=== PATIENT | female | born 1985 | race Caucasian/White ===

== ENCOUNTER 2017-05-15 12:24 | Emergency (ER) | payer OTHER ==
[~2017-05-15] VITALS: Ht 157.5 cm; Wt 102.9 kg
[~2017-05-15 12:24] MED LIST: CALC250T PO; IBUP80TA PO; LABE10TAB PO; No Historical Meds; OXYC10TA12 OR; PERCOCET PO; VITA500047 PO
[2017-05-15 14:28] LABS: ANION GAP 7 MEQ/L (8-16); BLOOD UREA NITROGEN 9 MG/DL (7-18); CALCIUM LEVEL 9.1 MG/DL (8.5-10.1); CARBON DIOXIDE LEVEL 27 MEQ/L (21-32); CHLORIDE LEVEL 106 MEQ/L (98-107); CREATININE FOR GFR 0.66 MG/DL (0.55-1.02); GLOMERULAR FILTRATION RATE > 60.0 (>60); GLUCOSE, FASTING 102 MG/DL (70-105); POTASSIUM SERUM 3.7 MEQ/L (3.5-5.1); SODIUM LEVEL 140 MEQ/L (136-145)
[2017-05-15 14:56] VITALS: BP 164/92
[2017-05-15] MEDS ORDERED: TOBR3OPD OS (15:26)
[2017-05-15] MEDS ORDERED: LISI10TA4 PO (15:26)
== END 2017-05-15 15:39 | disposition home or self-care (01) ==
LOC: M ED 12:24
DX: H10.9 Unspecified conjunctivitis (principal); I10 Essential (primary) hypertension; J45.909 Unspecified asthma, uncomplicated; Z87.442 Personal history of urinary calculi; Z87.440 Personal history of urinary (tract) infections; K92.9 Disease of digestive system, unspecified; N93.9 Abnormal uterine and vaginal bleeding, unspecified; F32.9 Major depressive disorder, single episode, unspecified; Z79.899 Other long term (current) drug therapy

== ENCOUNTER → 2017-07-29 | Outpatient (REF) | payer OTHER ==
[~2017-07-29] MED LIST changes: +LISI10TA4 PO; +TOBR3OPD OS
[2017-07-29 11:28] LABS: BASO % 0.6 % (0.0-1.0); EOS # 0.2 10^3/uL (0.0-0.50); IMMATURE GRANULOCYTE % 0.6 % (0-0); LYMPH # 2.7 10^3/uL (1.5-4.5); LYMPH % 40.9 % (24.0-44.0); MEAN CORPUSCULAR HEMOGLOBIN 29.3 pg (27.0-33.0); MEAN CORPUSCULAR HGB CONC 33.4 g/dl (32.0-36.5); MEAN CORPUSCULAR VOLUME 87.6 fl (80.0-96.0); MONO # 0.3 10^3/uL (0.0-0.8); MONO % 4.5 % (0.0-5.0); NEUTROPHILS # 3.4 10^3/uL (1.8-7.7); NEUTROPHILS % 50.4 % (36.0-66.0); PLATELET COUNT, AUTOMATED 312 10^3/uL (150-450); RED CELL DISTRIBUTION WIDTH 12.8 % (11.5-14.5); WHITE BLOOD COUNT 6.7 10^3/uL (4.0-10.0)
[2017-07-29 11:51] LABS: ALBUMIN 3.8 GM/DL (3.2-5.2); ALBUMIN/GLOBULIN RATIO 1.06 (1.00-1.93); ALKALINE PHOSPHATASE 85 U/L (45-117); ALT/SGPT 30 U/L (12-78); ANION GAP 7 MEQ/L (8-16); AST/SGOT 14 U/L (7-37); BILIRUBIN,TOTAL 0.2 MG/DL (0.2-1.0); BLOOD UREA NITROGEN 11 MG/DL (7-18); CALCIUM LEVEL 8.3 MG/DL (8.5-10.1); CARBON DIOXIDE LEVEL 27 MEQ/L (21-32); CHLORIDE LEVEL 107 MEQ/L (98-107); CHOLESTEROL LEVEL 192 MG/DL (<200); CREATININE FOR GFR 0.68 MG/DL (0.55-1.02); FREE T4 1.07 NG/DL (0.76-1.46); GLOMERULAR FILTRATION RATE > 60.0 (>60); GLUCOSE, FASTING 132 MG/DL (70-105); POTASSIUM SERUM 4.3 MEQ/L (3.5-5.1); SODIUM LEVEL 141 MEQ/L (136-145); TOTAL PROTEIN 7.4 GM/DL (6.4-8.2); TRIGLYCERIDES LEVEL 439 MG/DL (<150)
== END ==
LOC: M SFHCPLAZ 09:07
PROVIDERS: ATTEND Physician Assistant Medical
DX: N13.5 Crossing vessel and stricture of ureter without hydronephrosis (principal); R53.82 Chronic fatigue, unspecified; E66.9 Obesity, unspecified

== ENCOUNTER → 2017-08-12 | Outpatient (REF) | payer OTHER ==
[2017-08-12 13:06] LABS: FREE T4 1.14 NG/DL (0.76-1.46)
== END ==
LOC: M SFHCPLAZ 10:03
DX: E03.9 Hypothyroidism, unspecified (principal)
CPT/HCPCS: 84443

== ENCOUNTER → 2017-08-26 | Outpatient (REF) | payer OTHER ==
[2017-08-26 13:27] LABS: ANION GAP 7 MEQ/L (8-16); BLOOD UREA NITROGEN 11 MG/DL (7-18); CALCIUM LEVEL 9.4 MG/DL (8.5-10.1); CARBON DIOXIDE LEVEL 28 MEQ/L (21-32); CHLORIDE LEVEL 104 MEQ/L (98-107); CREATININE FOR GFR 0.74 MG/DL (0.55-1.02); FREE T4 1.18 NG/DL (0.76-1.46); GLOMERULAR FILTRATION RATE > 60.0 (>60); GLUCOSE, FASTING 141 MG/DL (70-100); POTASSIUM SERUM 3.8 MEQ/L (3.5-5.1); SODIUM LEVEL 139 MEQ/L (136-145)
== END ==
LOC: M SFHCPLAZ 09:59
DX: E03.9 Hypothyroidism, unspecified (principal); I10 Essential (primary) hypertension

== ENCOUNTER → 2017-10-15 | Outpatient (REF) | payer OTHER ==
[2017-10-15 13:43] LABS: ANION GAP 6 MEQ/L (8-16); BLOOD UREA NITROGEN 12 MG/DL (7-18); CALCIUM LEVEL 8.9 MG/DL (8.5-10.1); CARBON DIOXIDE LEVEL 28 MEQ/L (21-32); CHLORIDE LEVEL 105 MEQ/L (98-107); FREE T4 1.06 NG/DL (0.76-1.46); GLOMERULAR FILTRATION RATE > 60.0 (>60); GLUCOSE, FASTING 98 MG/DL (70-100); POTASSIUM SERUM 4.2 MEQ/L (3.5-5.1); SODIUM LEVEL 139 MEQ/L (136-145)
== END ==
LOC: M SFHCPLAZ 10:37
DX: E03.9 Hypothyroidism, unspecified (principal); I10 Essential (primary) hypertension

== ENCOUNTER → 2017-12-15 | Outpatient (REF) | payer OTHER ==
[2017-12-15 16:19] LABS: ESTIMATED AVERAGE GLUCOSE 108 MG/DL (60-110); HEMOGLOBIN A1c 5.4 %
[2017-12-15 16:23] LABS: FREE T4 1.09 NG/DL (0.76-1.46)
[2017-12-16 10:23] LABS: TOTAL 25(OH) VITAMIN D 16.5 NG/ML (30.0-100.0)
== END ==
LOC: M SFHCPLAZ 12:29
DX: E03.9 Hypothyroidism, unspecified (principal); E55.9 Vitamin D deficiency, unspecified; E66.9 Obesity, unspecified

== ENCOUNTER → 2018-03-05 | Outpatient (REF) | payer OTHER ==
[2018-03-05 12:31] LABS: ESTIMATED AVERAGE GLUCOSE 114 MG/DL (60-110); HEMOGLOBIN A1c 5.6 %
[2018-03-05 12:58] LABS: FREE T4 1.07 NG/DL (0.76-1.46)
== END ==
LOC: M SFHCPLAZ 10:13
DX: E03.9 Hypothyroidism, unspecified (principal); E66.9 Obesity, unspecified
CPT/HCPCS: 84443

== ENCOUNTER → 2018-05-13 | Outpatient (REF) | payer OTHER ==
[2018-05-13 12:43] LABS: FREE T4 1.09 NG/DL (0.76-1.46)
== END ==
LOC: M SFHCPLAZ 09:29
DX: E03.9 Hypothyroidism, unspecified (principal); E55.9 Vitamin D deficiency, unspecified

== ENCOUNTER → 2018-07-09 | Outpatient (REF) | payer OTHER ==
[2018-07-09 16:27] LABS: FREE T4 1.09 NG/DL (0.76-1.46)
== END ==
LOC: M SFHCPLAZ 14:24
DX: E03.9 Hypothyroidism, unspecified (principal)
CPT/HCPCS: 84443

== ENCOUNTER → 2018-11-03 | Outpatient (REF) | payer OTHER ==
[~2018-11-03] MED LIST changes: +AK-T0.3S OS; +LABE10TAB; +LEVO50TA5; +METF-839; +OXYC1TAB23 PO; -PERCOCET PO; -TOBR3OPD OS; +VITA50005
[2018-11-03 13:49] LABS: FREE T4 1.11 NG/DL (0.76-1.46); THYROID STIMULATING HORMONE 2.56 uIU/ML (0.358-3.740)
== END ==
LOC: M SFHCPLAZ 11:09
PROVIDERS: ATTEND Physician Assistant Medical
DX: E03.9 Hypothyroidism, unspecified (principal)

== ENCOUNTER → 2018-11-12 | Outpatient (REF) | payer OTHER ==
[2018-11-12 19:28] LABS: BASO % 0.6 % (0.0-1.0); EOS # 0.2 10^3/uL (0.0-0.50); EOS % 3.4 % (0.0-3.0); HEMATOCRIT 40.4 % (36.0-47.0); HEMOGLOBIN 13.2 g/dl (12.0-15.5); LYMPH # 2.2 10^3/uL (1.5-4.5); LYMPH % 31.6 % (24.0-44.0); MEAN CORPUSCULAR HEMOGLOBIN 29.8 pg (27.0-33.0); MEAN CORPUSCULAR HGB CONC 32.7 g/dl (32.0-36.5); MEAN CORPUSCULAR VOLUME 91.2 fl (80.0-96.0); MONO # 0.3 10^3/uL (0.0-0.8); MONO % 4.5 % (0.0-5.0); NEUTROPHILS # 4.1 10^3/uL (1.8-7.7); NEUTROPHILS % 59.5 % (36.0-66.0); PLATELET COUNT, AUTOMATED 367 10^3/uL (150-450); RED BLOOD COUNT 4.43 10^6/uL (4.00-5.40); WHITE BLOOD COUNT 6.8 10^3/uL (4.0-10.0)
[2018-11-12 20:18] LABS: ALBUMIN 3.8 GM/DL (3.2-5.2); ALT/SGPT 35 U/L (12-78); BILIRUBIN,TOTAL 0.2 MG/DL (0.2-1.0); BLOOD UREA NITROGEN 7 MG/DL (7-18); CALCIUM LEVEL 8.7 MG/DL (8.5-10.1); CARBON DIOXIDE LEVEL 24 MEQ/L (21-32); CHLORIDE LEVEL 106 MEQ/L (98-107); CREATININE FOR GFR 0.82 MG/DL (0.55-1.30); GLOMERULAR FILTRATION RATE > 60.0 (>60); GLUCOSE, FASTING 114 MG/DL (70-100); POTASSIUM SERUM 4.2 MEQ/L (3.5-5.1); SODIUM LEVEL 138 MEQ/L (136-145); TOTAL PROTEIN 7.3 GM/DL (6.4-8.2)
[2018-11-12 20:22] LABS: TOTAL 25(OH) VITAMIN D 28.2 NG/ML (30.0-100.0)
[2018-11-12 20:23] LABS: PTH INTACT 71.8 PG/ML (18.5-88.0)
[2018-11-12 20:44] LABS: HEMOGLOBIN A1c 5.3 %
== END ==
LOC: M SFHCPLAZ 15:43
PROVIDERS: ATTEND Physician Assistant Medical
DX: N92.1 Excessive and frequent menstruation with irregular cycle (principal); E55.9 Vitamin D deficiency, unspecified; E28.2 Polycystic ovarian syndrome

== ENCOUNTER 2019-06-06 03:05 | Emergency (ER) | payer OTHER ==
[~2019-06-06] VITALS: Ht 157.5 cm; Wt 97.7 kg
[2019-06-06 03:05] VITALS: BP 187/108
[2019-06-06] MEDS ORDERED: VITA500045 (03:11)
[2019-06-06] MEDS ORDERED: KETOROLAC 60 MG/2 ML VIAL (J1885) IM ONE (04:00)
--- NOTE | 2019-06-06 08:19 | REP ---
Clinical: Trauma . Technique: AP, lateral, bilateral oblique views of the right elbow. Findings: No acute fracture or dislocation is appreciated. Joint spaces and surrounding soft tissues appear normal. Lateral view demonstrates normal positioning to the anterior and posterior fat pads without evidence for effusion/hemarthrosis. No subcutaneous emphysema or foreign body identified. Impression: Normal right elbow radiographs. Electronically Signed by Teto Howard MD 06/06/2019 08:11 A
== END 2019-06-06 04:32 | disposition home or self-care (01) ==
LOC: M ED 03:05
DX: S50.01XA Contusion of right elbow, initial encounter (principal); X58.XXXA Exposure to other specified factors, initial encounter; Y92.89 Other specified places as the place of occurrence of the external cause; Z79.899 Other long term (current) drug therapy
CPT/HCPCS: 73080; 96372; 99283; J1885

== ENCOUNTER → 2019-06-16 | Outpatient (REF) | payer OTHER ==
[~2019-06-16] MED LIST changes: +VITA500045
[2019-06-16 11:36] LABS: BASO # 0.1 10^3/uL (0.0-0.2); BASO % 0.7 % (0.0-1.0); EOS # 0.3 10^3/uL (0.0-0.5); EOS % 3.4 % (0.0-3.0); HEMATOCRIT 40.9 % (36.0-47.0); LYMPH # 3.2 10^3/uL (1.5-5.0); LYMPH % 41.5 % (24.0-44.0); MEAN CORPUSCULAR HEMOGLOBIN 28.6 pg (27.0-33.0); MEAN CORPUSCULAR HGB CONC 31.8 g/dl (32.0-36.5); MEAN CORPUSCULAR VOLUME 90.1 fl (80.0-96.0); MONO # 0.6 10^3/uL (0.0-0.8); MONO % 7.2 % (0.0-5.0); NEUTROPHILS # 3.6 10^3/uL (1.5-8.5); NEUTROPHILS % 46.9 % (36.0-66.0); PLATELET COUNT, AUTOMATED 379 10^3/uL (150-450); RED BLOOD COUNT 4.54 10^6/uL (4.00-5.40); WHITE BLOOD COUNT 7.7 10^3/uL (4.0-10.0)
[2019-06-16 12:23] LABS: HEMOGLOBIN A1c 5.4 %
[2019-06-16 12:24] LABS: ALBUMIN 3.7 GM/DL (3.2-5.2); ALT/SGPT 19 U/L (12-78); BILIRUBIN,TOTAL 0.3 MG/DL (0.2-1.0); BLOOD UREA NITROGEN 12 MG/DL (7-18); CALCIUM LEVEL 9.8 MG/DL (8.5-10.1); CARBON DIOXIDE LEVEL 30 MEQ/L (21-32); CHLORIDE LEVEL 106 MEQ/L (98-107); CREATININE FOR GFR 0.71 MG/DL (0.55-1.30); FREE T4 1.12 NG/DL (0.76-1.46); GLOMERULAR FILTRATION RATE > 60.0 (>60); GLUCOSE, FASTING 86 MG/DL (70-100); POTASSIUM SERUM 4.1 MEQ/L (3.5-5.1); PTH INTACT 42.9 PG/ML (18.5-88.0); SODIUM LEVEL 141 MEQ/L (136-145); TOTAL 25(OH) VITAMIN D 50.2 NG/ML (30.0-100.0); TOTAL PROTEIN 7.4 GM/DL (6.4-8.2); VITAMIN B12 LEVEL 629 PG/ML (247-911)
== END ==
LOC: M SFHCPLAZ 10:09
PROVIDERS: ATTEND Physician Assistant Medical
DX: I10 Essential (primary) hypertension (principal); E55.9 Vitamin D deficiency, unspecified; E03.9 Hypothyroidism, unspecified; E66.9 Obesity, unspecified; E28.2 Polycystic ovarian syndrome

== ENCOUNTER → 2019-08-09 | Outpatient (CLI) | payer OTHER ==
[2019-08-09 12:04] LABS: FREE T4 1.3 NG/DL (0.76-1.46); THYROID STIMULATING HORMONE 0.93 uIU/ML (0.358-3.740)
== END ==
LOC: M PLALAB 08:46
PROVIDERS: ATTEND Physician Assistant Medical
DX: E03.9 Hypothyroidism, unspecified (principal)

== ENCOUNTER → 2019-09-13 | Outpatient (CLI) | payer OTHER | LOC: M SLEEP HO 09:44 | PROVIDERS: ATTEND Physician Assistant Medical | DX: R53.82 Chronic fatigue, unspecified (principal) ==

== ENCOUNTER → 2019-12-02 | Outpatient (CLI) | payer OTHER | LOC: M LABSMTC 11:43 | PROVIDERS: ATTEND Family Medicine | DX: Z11.59 Encounter for screening for other viral diseases (principal); Z20.828 Contact with and (suspected) exposure to other viral communicable diseases ==

== ENCOUNTER 2020-02-22 19:05 | Emergency (ER) | payer OTHER ==
[~2020-02-22] VITALS: Ht 162.6 cm; Wt 105.8 kg
[~2020-02-22 19:05] MED LIST changes: -LABE10TAB; -METF-839; +METF-839 PO
[2020-02-22] MEDS ORDERED: ONDANSETRON 4 MG ORAL DISINTEGRATING TAB PO ONE (19:45)
[2020-02-22] MEDS ORDERED: NS 1,000 ML IV SCH (20:06)
[2020-02-22] MEDS ORDERED: KETOROLAC 30 MG/ML 1ML VIAL IV ONE (20:15)
[2020-02-22] MEDS ORDERED: ONDANSETRON 4MG/2ML VIAL IV ONE (20:15)
[2020-02-22 20:45] LABS: BASO # 0.1 10^3/uL (0.0-0.2); BASO % 0.4 % (0.0-1.0); EOS # 0.1 10^3/uL (0.0-0.5); EOS % 1.1 % (0.0-3.0); HEMATOCRIT 40.1 % (36.0-47.0); HEMOGLOBIN 13.1 g/dl (12.0-15.5); LYMPH # 1.6 10^3/uL (1.5-5.0); LYMPH % 12.8 % (24.0-44.0); MEAN CORPUSCULAR HEMOGLOBIN 28.2 pg (27.0-33.0); MEAN CORPUSCULAR HGB CONC 32.7 g/dl (32.0-36.5); MEAN CORPUSCULAR VOLUME 86.2 fl (80.0-96.0); MONO # 0.5 10^3/uL (0.0-0.8); NEUTROPHILS % 81.2 % (36.0-66.0); PLATELET COUNT, AUTOMATED 333 10^3/uL (150-450); RED BLOOD COUNT 4.65 10^6/uL (4.00-5.40); WHITE BLOOD COUNT 12.3 10^3/uL (4.0-10.0)
[2020-02-22 21:11] LABS: ALBUMIN 3.9 GM/DL (3.2-5.2); ALT/SGPT 28 U/L (12-78); AMYLASE 45 U/L (25-115); BILIRUBIN,DIRECT < 0.1 MG/DL (0.0-0.2); BILIRUBIN,TOTAL 0.4 MG/DL (0.2-1.0); BLOOD UREA NITROGEN 12 MG/DL (7-18); CALCIUM LEVEL 8.8 MG/DL (8.5-10.1); CARBON DIOXIDE LEVEL 21 MEQ/L (21-32); CHLORIDE LEVEL 107 MEQ/L (98-107); CREATININE FOR GFR 0.89 MG/DL (0.55-1.30); GLOMERULAR FILTRATION RATE > 60.0 (>60); GLUCOSE, FASTING 116 MG/DL (70-100); LIPASE 224 U/L (73-393); POTASSIUM SERUM 4.2 MEQ/L (3.5-5.1); SODIUM LEVEL 136 MEQ/L (136-145); TOTAL PROTEIN 7.6 GM/DL (6.4-8.2)
--- NOTE | 2020-02-22 21:23 | REPVR ---
PROCEDURE INFORMATION: Exam: CT Abdomen And Pelvis Without Contrast Exam date and time: 02/22/2020 8:58 PM Age: 34 years old Clinical indication: Abdominal pain; Localized; Right upper quadrant (ruq); Additional info: Ruq/ flank pain HX renal calc TECHNIQUE: Imaging protocol: Computed tomography of the abdomen and pelvis without contrast. Axial, coronal and sagittal reformatted images were created and reviewed. Radiation optimization: All CT scans at this facility use at least one of these dose optimization techniques: automated exposure control; mA and/or kV adjustment per patient size (includes targeted exams where dose is matched to clinical indication); or iterative reconstruction. COMPARISON: CT ABD PELVIS W/O CONTRAST 09/22/2014 8:18 PM FINDINGS: Liver: Mild hepatomegaly. Diffuse hepatic steatosis. Gallbladder and bile ducts: No radiodense gallstones. No biliary ductal dilatation. Pancreas: Unremarkable. Spleen: Unremarkable. Adrenals: Unremarkable. Kidneys and ureters: Moderate right-sided hydroureteronephrosis and perinephric/periureteral edema, secondary to 2 adjacent 4 mm distal right ureteral calculi (axial images 127-130 and coronal image 72). Stomach and bowel: No bowel wall thickening. No obstruction. No pneumatosis. Appendix: Normal. Intraperitoneal space: No free fluid. No organized fluid collection. No free air. Vasculature: Unremarkable. No aneurysm. Lymph nodes: No pathologically enlarged lymph nodes. Bladder: Unremarkable. Reproductive: Unremarkable. Bones/joints: No acute osseous abnormality. Soft tissues: Small, fat containing umbilical hernia. IMPRESSION: 1. Moderate right-sided hydroureteronephrosis and perinephric/periureteral edema, secondary to 2 adjacent 4 mm distal right ureteral calculi. 2. Additional findings, as above. Electronically signed by: Logan Villa On 02/22/2020 21:23:11 PM
[2020-02-22] MEDS ORDERED: CIPR-249 PO (21:44)
[2020-02-22] MEDS ORDERED: FLOM0.4C39 PO (21:44)
[2020-02-22] MEDS ORDERED: KETO10TAB PO (21:44)
[2020-02-22 21:57] VITALS: BP 125/74
[2020-02-22] MEDS ORDERED: CIPROFLOXACIN 500MG TABLET PO ONE (22:00)
[2020-04-07] MEDS ORDERED: SYNT75TA PO (11:41)
[2020-04-07] MEDS ORDERED: VITA50005 PO (11:41)
[2020-04-07] MEDS ORDERED: TOPI25TA10 PO (11:41)
== END 2020-02-22 22:10 | disposition home or self-care (01) ==
LOC: M ED 19:05
DX: N39.0 Urinary tract infection, site not specified (principal); N13.2 Hydronephrosis with renal and ureteral calculous obstruction; N28.89 Other specified disorders of kidney and ureter; F17.210 Nicotine dependence, cigarettes, uncomplicated; Z79.899 Other long term (current) drug therapy
CPT/HCPCS: 74176; 80048; 80076; 81001; 82150; 83690; 84702; 85025; 96361; 96374; 96375; 99284; J1885; J2405; Q0162

== ENCOUNTER → 2020-03-07 | Outpatient (REF) | payer OTHER ==
[~2020-03-07] MED LIST changes: +CIPR-249 PO; +FLOM0.4C39 PO; +KETO10TAB PO; +SYNT75TA PO; +TOPI25TA10 PO; +VITA50005 PO
[2020-04-03 20:28] LABS: BASO # 0.1 10^3/uL (0.0-0.2); BASO % 0.6 % (0.0-1.0); EOS # 0.2 10^3/uL (0.0-0.5); EOS % 2.4 % (0.0-3.0); HEMOGLOBIN 12.9 g/dl (12.0-15.5); LYMPH # 3.5 10^3/uL (1.5-5.0); LYMPH % 43.7 % (24.0-44.0); MEAN CORPUSCULAR HEMOGLOBIN 28.9 pg (27.0-33.0); MEAN CORPUSCULAR HGB CONC 32.3 g/dl (32.0-36.5); MEAN CORPUSCULAR VOLUME 89.7 fl (80.0-96.0); MONO # 0.6 10^3/uL (0.0-0.8); MONO % 7.1 % (0.0-5.0); NEUTROPHILS # 3.7 10^3/uL (1.5-8.5); PLATELET COUNT, AUTOMATED 345 10^3/uL (150-450); RED BLOOD COUNT 4.46 10^6/uL (4.00-5.40); WHITE BLOOD COUNT 8.1 10^3/uL (4.0-10.0)
[2020-05-23 11:54] LABS: GLUCOSE, FASTING SEE SEPARATE REPORT
== END ==
LOC: M SFHCPLAZ 16:55
PROVIDERS: ATTEND Physician Assistant Medical
DX: Z00.00 Encounter for general adult medical examination without abnormal findings (principal)

== ENCOUNTER → 2020-03-22 | Outpatient (REF) | payer OTHER ==
[2020-03-22 12:14] LABS: AMORPHOUS SEDIMENT SMALL (NEGATIVE); APPEARANCE, URINE HAZY (CLEAR); BACTERIA, URINE AUTO 3+ (NEGATIVE); BILIRUBIN, URINE AUTO NEGATIVE (NEGATIVE); BLOOD, URINE BLOOD NEGATIVE (NEGATIVE); COLOR, URINE YELLOW (YELLOW); GLUCOSE, URINE (UA) AUTO NEGATIVE (NEGATIVE); KETONE, URINE AUTO NEGATIVE (NEGATIVE); LEUKOCYTE ESTERASE, URINE AUTO NEGATIVE (NEGATIVE); MUCUS, URINE SMALL (NEGATIVE); NITRITE, URINE AUTO NEGATIVE (NEGATIVE); PROTEIN, URINE AUTO NEGATIVE (NEGATIVE); RBC, URINE AUTO 2 /HPF (0-3); SPECIFIC GRAVITY URINE AUTO 1.016 (1.002-1.035); SQUAMOUS EPITHELIAL CELL UR AU 3 /HPF (0-6); UROBILINOGEN, URINE AUTO 0.2 mg/dL (0.0-2.0); WBC, URINE AUTO 2 /HPF (0-3)
== END ==
LOC: M SMT 10:30
PROVIDERS: ATTEND Nurse Practitioner Family
DX: N20.0 Calculus of kidney (principal)

== ENCOUNTER → 2020-04-07 | Outpatient (CLI) | payer OTHER ==
[2020-04-07 14:47] LABS: HEMOGLOBIN 12.8 g/dl (12.0-15.5); MEAN CORPUSCULAR HEMOGLOBIN 29.2 pg (27.0-33.0); MEAN CORPUSCULAR HGB CONC 32.8 g/dl (32.0-36.5); MEAN CORPUSCULAR VOLUME 88.8 fl (80.0-96.0); PLATELET COUNT, AUTOMATED 310 10^3/uL (150-450); RED BLOOD COUNT 4.39 10^6/uL (4.00-5.40); WHITE BLOOD COUNT 6.4 10^3/uL (4.0-10.0)
[2020-04-07 14:58] LABS: APPEARANCE, URINE HAZY (CLEAR); BACTERIA, URINE AUTO 1+ (NEGATIVE); BILIRUBIN, URINE AUTO NEGATIVE (NEGATIVE); BLOOD, URINE BLOOD NEGATIVE (NEGATIVE); CALCIUM OXALATE CRYSTALS SMALL; COLOR, URINE YELLOW (YELLOW); GLUCOSE, URINE (UA) AUTO NEGATIVE (NEGATIVE); KETONE, URINE AUTO NEGATIVE (NEGATIVE); LEUKOCYTE ESTERASE, URINE AUTO NEGATIVE (NEGATIVE); MUCUS, URINE SMALL (NEGATIVE); NITRITE, URINE AUTO NEGATIVE (NEGATIVE); PROTEIN, URINE AUTO NEGATIVE (NEGATIVE); RBC, URINE AUTO 1 /HPF (0-3); SPECIFIC GRAVITY URINE AUTO 1.019 (1.002-1.035); SQUAMOUS EPITHELIAL CELL UR AU 0 /HPF (0-6); UROBILINOGEN, URINE AUTO 0.2 mg/dL (0.0-2.0); WBC, URINE AUTO 1 /HPF (0-3)
[2020-04-07 15:02] LABS: INR 0.97; PROTHROMBIN TIME 13.1 SECONDS (11.8-14.0)
[2020-04-07 15:03] LABS: PARTIAL THROMBOPLASTIN TIME 32.4 SECONDS (25.0-38.4)
[2020-04-07 15:06] LABS: BLOOD UREA NITROGEN 13 MG/DL (7-18); CALCIUM LEVEL 8.8 MG/DL (8.5-10.1); CARBON DIOXIDE LEVEL 23 MEQ/L (21-32); CHLORIDE LEVEL 111 MEQ/L (98-107); CREATININE FOR GFR 0.85 MG/DL (0.55-1.30); GLOMERULAR FILTRATION RATE > 60.0 (>60); GLUCOSE, FASTING 138 MG/DL (70-100); POTASSIUM SERUM 3.7 MEQ/L (3.5-5.1); SODIUM LEVEL 140 MEQ/L (136-145)
[2020-04-07 15:10] LABS: HCG, SERUM QUALITATIVE NEGATIVE (NEGATIVE)
== END ==
LOC: M LAB 12:16
PROVIDERS: ATTEND Nurse Practitioner Family
DX: Z01.818 Encounter for other preprocedural examination (principal); N20.0 Calculus of kidney

== ENCOUNTER → 2020-04-15 | Outpatient (CLI) | payer OTHER | LOC: M LABSMTC 11:45 | PROVIDERS: ATTEND Anesthesiology | DX: Z11.59 Encounter for screening for other viral diseases (principal); Z20.828 Contact with and (suspected) exposure to other viral communicable diseases | CPT/HCPCS: C9803; U0002 ==

== ENCOUNTER 2020-04-17 11:12 | Day surgery (SDC) | payer OTHER ==
[~2020-04-17] VITALS: Ht 162.6 cm; Wt 100.7 kg
[~2020-04-17 11:12] MED LIST changes: +LR 1,000 ML IV ONE; +ceFAZolin SOD 2 GM in IV 1 EA IV ONE
[2020-04-17] MEDS ORDERED: MIDAZOLAM INJ 2MG/2ML VIAL (J2250 PER 1MG) As Ordered ONE (11:24)
[2020-04-17] MEDS ORDERED: LIDOCAINE 2% 100MG/5ML SDV (FOR ANES.) As Ordered ONE (11:25)
[2020-04-17] MEDS ORDERED: ROCURONIUM BROMIDE 50 MG/5 ML VIAL As Ordered ONE (11:25)
[2020-04-17] MEDS ORDERED: dexameTHASONE 4 MG/ML 1ML VIAL (J1100 PER 1MG) As Ordered ONE (11:25)
[2020-04-17] MEDS ORDERED: propofoL 200 MG/20 ML VIAL As Ordered ONE (11:25)
[2020-04-17] MEDS ORDERED: ONDANSETRON 4MG/2ML VIAL As Ordered ONE (11:25)
[2020-04-17] MEDS ORDERED: fentaNYL 100 MCG/2 ML INJECTION (J3010) As Ordered ONE (11:25)
[2020-04-17] MEDS ORDERED: PHENYLephrine HCL 500 MCG/5 ML (100MCG/ML) SYRINGE (J2370) As Ordered ONE (11:26)
[2020-04-17] MEDS ORDERED: ePHEDrine SULFATE 25 MG/5 ML(5MG/ML) SYRINGE As Ordered ONE (11:26)
[2020-04-17] MEDS ORDERED: CONRAY-60 60% 50ML VIAL (Q9961) As Ordered ONE (12:46)
[2020-04-17] MEDS ORDERED: ACETAMINOPHEN 1000MG 100ML IV BTL (OFIRMEV) (J0131 PER 10MG) As Ordered ONE (13:08)
[2020-04-17] MEDS ORDERED: fentaNYL 100 MCG/2 ML INJECTION (J3010) IV PRN (14:15)
[2020-04-17] MEDS ORDERED: LR 1,000 ML IV SCH (14:15)
[2020-04-17] MEDS ORDERED: oxyCODONE 5MG TAB PO PRN (14:15)
[2020-04-17] MEDS ORDERED: IBUPROFEN 600MG TAB PO PRN (14:15)
[2020-04-17] MEDS ORDERED: ONDANSETRON 4MG/2ML VIAL IV PRN (14:15)
[2020-04-17 16:00] VITALS: BP 142/74
--- NOTE | 2020-05-01 13:12 | RO ---
DATE OF OPERATION: 04/17/2020 PREOPERATIVE DIAGNOSIS: Distal right ureteral calculi. POSTOPERATIVE DIAGNOSIS: Pelvic phleboliths with no renal calculi. PROCEDURE: Right retrograde pyelogram, ureteroscopy, stent insertion. SURGEON: James Cuellar MD ANESTHESIA: General. INDICATION FOR OPERATION: This is a 34-year-old, white female who had some right flank pain and diagnosed on CT as having two distal right ureteral calculi measuring 4 mm in size each. When she failed to pass the stone, she was brought to the operating room for stone removal. DESCRIPTION OF OPERATION: The patient was anesthetized for general anesthesia, placed in the lithotomy position, prepped with Betadine paint, draped in an aseptic manner, and timeout was performed. A 22-Slovenian cystoscope was then inserted into the meatus and advanced under direct vision of a 30-degree lens to the bladder. In the bladder, the mucosa appeared to be normal. The right ureteral orifice was then catheterized with a 4-Slovenian Pollack catheter. A retrograde injection of 10 mL of Conray showed the patient had one phlebolith and what appeared to be one ureteral calculus. A wire guide was then passed through the ureteral orifice up to the renal pelvis followed by a second working wire. The cystoscope was then removed and a flexible ureteroscope was passed over the working wire into the distal ureter. The ureter was evaluated all the way to the renal pelvis and no stones were encountered. There was a lot of inflammation and swelling around the distal ureter and intramural ureter but no stones were present. The individual calyces were then examined and no stones were found. The ureteroscope was then removed, evaluating the ureter on the way out and again no stones were encountered. There was, as mentioned before, a lot of irritation around the distal and intramural ureter. The cystoscope was then backloaded over the safety wire and a 5-Slovenian double-J stent was passed over this wire and curled well in the renal pelvis and in the bladder when the wire was removed. The bladder was then drained, cystoscope was removed, and the patient was awakened and sent to the recovery room in stable condition having tolerated the procedure well. The patient will have the stent removed in two weeks. RASHAAD
--- NOTE | 2020-05-04 11:07 | REP ---
RETROGRADE PYELOGRAM: 3-VIEWS HISTORY: Right stent placement. 29 seconds of fluoroscopy time is reported. FINDINGS: A sequence of three last image hold fluoroscopically obtained spot radiographs of the abdomen document ureteral cannulation, contrast injection, and stent placement. No laterality markers are visible. MTDD
== END 2020-04-17 16:20 | disposition home or self-care (01) ==
LOC: M SDC 11:12
PROVIDERS: ATTEND Urology
DX: I99.8 Other disorder of circulatory system (principal); N20.1 Calculus of ureter; E03.9 Hypothyroidism, unspecified; I10 Essential (primary) hypertension; G47.30 Sleep apnea, unspecified; Z79.899 Other long term (current) drug therapy; Z79.84 Long term (current) use of oral hypoglycemic drugs
CPT/HCPCS: 52332; 74420; 81025; C1769; C1894; C2617; J0131; J0690; J1100; J2250; J2370; J2405; J3010; Q9961

== ENCOUNTER → 2020-05-24 | Outpatient (REF) | payer OTHER ==
[~2020-05-24] MED LIST changes: -LR 1,000 ML IV ONE; -ceFAZolin SOD 2 GM in IV 1 EA IV ONE
[2020-05-24 15:44] LABS: CALCIUM LEVEL 9.7 MG/DL (8.5-10.1); FREE T4 1.06 NG/DL (0.76-1.46); THYROID STIMULATING HORMONE 1.84 uIU/ML (0.358-3.740); TOTAL 25(OH) VITAMIN D 51.7 NG/ML (30.0-100.0)
== END ==
LOC: M SFHCPLAZ 12:04
PROVIDERS: ATTEND Physician Assistant Medical
DX: E03.9 Hypothyroidism, unspecified (principal); E55.9 Vitamin D deficiency, unspecified

== ENCOUNTER → 2021-04-26 | Outpatient (CLI) | payer OTHER ==
[~2021-04-26] MED LIST changes: +ERGO500029 PO; +LABE100T4 PO; +LISI10TA22 PO; -LISI10TA4 PO; -VITA50005 PO
[2021-04-26 15:06] LABS: HEMATOCRIT 35.7 % (36.0-47.0); HEMOGLOBIN 11.4 g/dl (12.0-15.5); MEAN CORPUSCULAR HEMOGLOBIN 27.9 pg (27.0-33.0); MEAN CORPUSCULAR HGB CONC 31.9 g/dl (32.0-36.5); MEAN CORPUSCULAR VOLUME 87.5 fl (80.0-96.0); PLATELET COUNT, AUTOMATED 312 10^3/uL (150-450); RED BLOOD COUNT 4.08 10^6/uL (4.00-5.40); WHITE BLOOD COUNT 7.7 10^3/uL (4.0-10.0)
[2021-04-26 15:35] LABS: CREATININE,RANDOM URINE 78.2 MG/DL; TOTAL PROTEIN,RANDOM URINE 11.8 MG/DL (0.0-12.0)
[2021-04-26 15:42] LABS: ALT/SGPT 16 U/L (12-78); BILIRUBIN,TOTAL 0.2 MG/DL (0.2-1.0); CREATININE FOR GFR 0.56 MG/DL (0.55-1.30); FREE T4 1.03 NG/DL (0.76-1.46); GLOMERULAR FILTRATION RATE > 60.0 (>60); LDH LACTATE DEHYDROGENASE 188 U/L (84-246); URIC ACID 3.5 MG/DL (2.6-6.0)
[2021-04-26 16:24] LABS: GC DNA AMPLIFICATION NEGATIVE (NEGATIVE); HIV 1&2 SCREEN CENTAUR NEGATIVE (NEGATIVE)
== END ==
LOC: M PLALAB 11:23
PROVIDERS: ATTEND Advanced Practice Midwife
DX: O10.919 Unspecified pre-existing hypertension complicating pregnancy, unspecified trimester (principal); Z3A.00 Weeks of gestation of pregnancy not specified

== ENCOUNTER → 2021-05-02 | Outpatient (CLI) | payer OTHER ==
[~2021-05-02] MED LIST changes: +PRENTAB53 PO
--- NOTE | 2021-05-02 14:16 | REP ---
INDICATION: ANATOMY 30 WKS. COMPARISON: None. TECHNIQUE: Transabdominal scanning FINDINGS: Multiple ultrasonographic images of the gravid uterus shows a single living intrauterine gestation in the cephalic presentation. Doppler interrogation of the heart shows a heart rate of 120 beats per minute. The placenta is anterior and not low-lying. The cervix measures 4.7 cm in length and is closed. The subjective amniotic fluid volume is within normal limits. BPD: 9.1 cm 37 weeks 1 day HC: 33.0 cm 37 weeks 4 days AC: 33.8 cm 37 weeks 5 days FL: 7.5 cm 38 weeks 2 days The estimated weight is 3301 g which is at the 70th percentile for 37 week 6 day gestational age. The fetus was too large for an anatomical screen. Anatomical screens are obtained at 20-22 weeks gestation. IMPRESSION: Single living intrauterine gestation as described above with an estimated gestational age of 37 weeks 6 days via composite criteria and an estimated date of delivery of 05/17/2021 by today's exam. <Electronically signed by Daniel Young > 05/02/21 [id number]
== END ==
LOC: M WHC 11:34
PROVIDERS: ATTEND Advanced Practice Midwife
DX: O10.919 Unspecified pre-existing hypertension complicating pregnancy, unspecified trimester (principal); Z3A.37 37 weeks gestation of pregnancy

== ENCOUNTER → 2021-05-03 | Outpatient (CLI) | payer OTHER | LOC: M LABSMTC 09:18 | PROVIDERS: ATTEND Anesthesiology | DX: Z01.812 Encounter for preprocedural laboratory examination (principal); Z20.822 Contact with and (suspected) exposure to COVID-19 ==

== ENCOUNTER 2021-05-04 05:21 | Inpatient (IN) | payer OTHER ==
[~2021-05-04] VITALS: Ht 162.6 cm; Wt 102.1 kg
[2021-05-04] VITALS (7 sets, daily range): BP systolic 108–129; BP diastolic 59–77
[2021-05-04] MEDS ORDERED: HOME MED LIST COMPLETE! XX SCH (06:05)
[2021-05-04 06:30] LABS: HEMATOCRIT 34.7 % (36.0-47.0); HEMOGLOBIN 11.2 g/dl (12.0-15.5); MEAN CORPUSCULAR HEMOGLOBIN 27.8 pg (27.0-33.0); MEAN CORPUSCULAR HGB CONC 32.3 g/dl (32.0-36.5); MEAN CORPUSCULAR VOLUME 86.1 fl (80.0-96.0); PLATELET COUNT, AUTOMATED 302 10^3/uL (150-450); RED BLOOD COUNT 4.03 10^6/uL (4.00-5.40); WHITE BLOOD COUNT 8.1 10^3/uL (4.0-10.0)
[2021-05-04] MEDS ORDERED: MORPHINE PRES-FREE INJ 10 MG/10 ML VIAL (J2274) As Ordered ONE (07:05)
[2021-05-04] MEDS ORDERED: OXYTOCIN 30 UNITS IN 0.9% NaCl 500ML IV BAG (J2590) As Ordered ONE ×2 (07:10→09:24)
[2021-05-04] MEDS ORDERED: LACTATED RINGER'S 1000 ML IV STA (07:39)
[2021-05-04] MEDS ORDERED: LR 1,000 ML IV SCH ×3 (07:40→09:40)
[2021-05-04] MEDS ORDERED: ceFAZolin SOD 2 GM in IV 1 EA IV ONE (07:40)
[2021-05-04] MEDS ORDERED: BICITRA 30ML SOLN UDC PO ONE (07:40)
--- NOTE | 2021-05-04 07:49 | HPEPDOC ---
Obstetrical History & Physical General Date of Admission May 04, 2021 at 05:21 History of Present Illness 35 yo female at 38 1/7 weeks by third trimester ultrasound presents for repeat section and tubal sterilization. The indication for delivery less than 39 weeks is chronic hypertension with a history of help syndrome in a prior . She has had 3 prior sections. She presented late for care. Age: 35 : 4 Term: 3 Pre-term: 0 Abortions: 0 Livin Care Care: Limited Care Dating Final EDC: May 17, 2021 Final EDC by: 3rd trimester (US) Antepartum Course Diagnos(e)s 1. Late care. 2. History of HELLP syndrome prior Past Medical History Past Obstetrical History : Past Obstetrical History: Multigravida Past Medical History Medical History ob hx: section x3 med hx: 1. History of kidney stones 2. History of renal failure following episode of HELLP syndrome 3. Chronic hypertension on labetalol Family History Significant Family History: No pertinent family hx Social History Marital Status: Family situation: Spouse/partner home Allergies Coded Allergies: No Known Allergies (Unverified , 05/03/21) Medications Scheduled Vit,Calc76/Iron/Folic (Prenatabs Rx Tablet) 1 Each Tablet, 1 TAB PO DAILY Physical Examination Physical Examination GENERAL: Alert and oriented times three. BREAST: . ABDOMEN: Gravid and non-tender to touch. FETUS: Is vertex (VTX) by sterile vaginal examination (SVE), fetus is vertex (VTX) by Hugo. HEART RATE: Regular rate and rhythm. LUNGS: Clear to auscultation (CTA). EXTREMITIES: No edema. No clonus. Deep tendon reflexes (DTRs) + . Vital Signs/I&O Vital Signs Date Time Temp Pulse Resp B/P (MAP) Pulse Ox O2 Delivery O2 Flow Rate FiO2 05/04/21 06:41 73 18 116/67 (83) 97 05/04/21 05:59 99.0 Laboratory Data 24H LABS Laboratory Tests 2 05/03/21 22:38: Serology Scanned Report Hepatitis B Testing 05/04/21 05:40: Nucleated Red Blood Cells % (auto) 0.0 CBC/BMP Laboratory Tests 05/04/21 05:40 Assessment Variability: Moderate Accelerations: Positive Decelerations: None Tocometer Frequency: irregular Assessment/Plan Assessment Pt is a 35-year-old (G)4 para (P)3003 at 38+1 weeks by 37-week ultrasound presents for repeat section and bilateral tubal sterilization. 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 Consent for section and tubal ligation signed. Plan delivery 05/04/2021. ANIKET MCMULLEN MD May 04, 2021 07:49
[2021-05-04] MEDS ORDERED: NALBUPHINE HCL 10 MG/ML AMP (J2300) IV PRN (08:22)
[2021-05-04] MEDS ORDERED: METOCLOPRAMIDE INJ 10MG/2ML VIAL (J2765 PER 1) IV PRN ×2 (08:22→09:40)
[2021-05-04] MEDS ORDERED: ONDANSETRON 4MG/2ML VIAL IV PRN ×3 (08:22→09:40)
[2021-05-04] MEDS ORDERED: diphenhydrAMINE 50MG/ML VIAL (J1200) IV PRN (08:22)
[2021-05-04] MEDS ORDERED: NALOXONE INJ 0.4MG/1ML VIAL (J2310 PER 1MG) IV PRN ×2 (08:22)
[2021-05-04] MEDS ORDERED: PHENYLephrine 500MCG 5ML (100MCG/ML) SYRINGE As Ordered ONE (08:42)
[2021-05-04] MEDS ORDERED: ePHEDrine SULFATE 25 MG/5 ML(5MG/ML) SYRINGE As Ordered ONE ×2 (08:42→09:37)
[2021-05-04] MEDS ORDERED: ONDANSETRON 4MG/2ML VIAL As Ordered ONE (08:42)
[2021-05-04] MEDS ORDERED: KETOROLAC 60MG 2ML VIAL As Ordered ONE (08:42)
[2021-05-04] MEDS ORDERED: dexameTHASONE 4 MG/ML 1ML VIAL (J1100 PER 1MG) As Ordered ONE (08:42)
[2021-05-04] MEDS: PRENATAL VITAMINS CHEWABLE TABLET PO SCH (09:00)
[2021-05-04] MEDS ORDERED: RHOGAM 300 MCG (1500 IU) INJ (J2790) IM SCH (09:20)
[2021-05-04] MEDS ORDERED: OXYTOCIN DRIP 30 UNITS in IV 1 EA IV SCH (09:20)
[2021-05-04] MEDS ORDERED: SIMETHICONE 80MG CHEW TAB PO PRN (09:20)
[2021-05-04] MEDS ORDERED: MEASLES,MUMPS,RUBELLA VACCINE INJ (MMR-II) (90707) SC SCH (09:20)
[2021-05-04] MEDS ORDERED: PERCOCET 5MG/325MG TAB PO PRN ×2 (09:20→09:40)
--- NOTE | 2021-05-04 09:26 | ROOPDOC ---
[facility] Report Of Operation Report of Operation DATE OF PROCEDURE: 05/04/21 Report of operation Preoperative diagnosis: 38 1/7 weeks, prior x 3, chronic hypertension Postoperative diagnosis: same Procedure: Repeat low transverse section and bilateral tubal ligation. Surgeon: Aniket Mcmullen M.D. Asst.: Mini Reyes CNM EBL: 500 ml. Urine output: 100 mL's. Findings: 7 lbs. 7 oz. female infant, 's 9 and 9 g normal uterus, fallopian tubes, ovaries. Operative summary: Patient taken to the operating room where spinal anesthesia was induced. She was prepped and draped in a sterile fashion in the supine position. A King catheter was placed. A Pfannenstiel skin incision was made with scalpel. Fascia was incised and extended bilaterally. The fascia was dissected off the rectus muscles. The peritoneal cavity was entered. A Mobius retractor was placed. A bladder flap was created. A curvilinear incision was made in lower uterine segment until Clear fluid was noted. The incision was extended manually. The was delivered from the vertex position without difficulty. Cord was double clamped and cut. The was handed waiting nurses. The placenta was expressed. Uterus was closed with O-Vicryl in a running locked fashion. A second imbricating layer of Vicryl was placed. Attention was turned to the fallopian tubes. A Qiana clamp was used to grasp the fallopian tubes at the midportion.. A window was created in the broad ligament free tie of 2-0 chromic was placed around the segment of tube on either side of the clamp. A Segment of tube was excised bilaterally and sent to pathology. Peritoneum was closed with 2-0 Vicryl a running fashion. Fascia was closed with 0 Vicryl in running fashion. Skin was closed 4-0 Monocryl subcuticular sutures. Sponge, instrument and needle counts were correct. Mini Reyes CNM, assisted with all aspects of the procedure. She helped close each layer of the incision and deliver the fetus. ANIKET MCMULLEN MD May 04, 2021 09:26
[2021-05-04] MEDS ORDERED: IBUP80TA PO (09:27)
[2021-05-04] MEDS ORDERED: OXYC1TAB23 PO (09:27)
[2021-05-04] MEDS ORDERED: fentaNYL 100 MCG/2 ML INJECTION (J3010) IV PRN (09:40)
[2021-05-04] MEDS ORDERED: ePHEDrine SULFATE 25 MG/5 ML(5MG/ML) SYRINGE IV PRN (10:00)
[2021-05-04] MEDS: KETOROLAC 30 MG/ML 1ML VIAL IV SCH ×2 (15:03→20:04)
[2021-05-05 02:08] VITALS: BP 107/55
[2021-05-05] MEDS: KETOROLAC 30 MG/ML 1ML VIAL IV SCH (02:43)
[2021-05-05 06:13] VITALS: BP 120/70
[2021-05-05] MEDS: PRENATAL VITAMINS CHEWABLE TABLET PO SCH (07:38)
[2021-05-05] MEDS: PERCOCET 5MG/325MG TAB PO PRN (07:39)
[2021-05-05 08:33] LABS: HEMATOCRIT 28.5 % (36.0-47.0); MEAN CORPUSCULAR HEMOGLOBIN 27.9 pg (27.0-33.0); MEAN CORPUSCULAR HGB CONC 32.3 g/dl (32.0-36.5); MEAN CORPUSCULAR VOLUME 86.4 fl (80.0-96.0); PLATELET COUNT, AUTOMATED 262 10^3/uL (150-450); WHITE BLOOD COUNT 9.6 10^3/uL (4.0-10.0)
[2021-05-05 08:37] LABS: HEMOGLOBIN 9.2 g/dl (12.0-15.5)
[2021-05-05 10:00] VITALS: BP 112/60
[2021-05-05] MEDS: IBUPROFEN 800 MG TAB PO SCH ×2 (11:20→18:10)
[2021-05-05 14:02] VITALS: BP 109/65
[2021-05-05 22:00] VITALS: BP 122/71
[2021-05-06] MEDS: IBUPROFEN 800 MG TAB PO SCH ×2 (04:17→11:40)
[2021-05-06 05:09] VITALS: BP 136/74
[2021-05-06] MEDS: PRENATAL VITAMINS CHEWABLE TABLET PO SCH (08:09)
[2021-05-06] MEDS: PERCOCET 5MG/325MG TAB PO PRN (08:42)
--- NOTE | 2021-05-06 12:34 | OBDS ---
[facility] Obstetrical Discharge Sum. Obstetrical Discharge Summary Date: May 06, 2021 Time: 04:00 : 4 Term: 4 Pre-term: 0 Abortions: 0 Livin VDRL: Non-Reactive Rubella: Immune Anesthesia: Regional Anesthesia A/P, Post Course List any complications Admission diagnosis: Term for elective repeat c/s and tubal ligation.. Discharge diagnosis: Same Condition at Discharge: [Stable] Discharge Instructions: [see list] Activity: [as tolerated] Diet: [regular] Medications: [See list] Follow-up: [2 weeks] Other: Kuldeep Moreau DO May 06, 2021 12:34
== END 2021-05-06 14:00 | disposition home or self-care (01) | DRG 540 ==
LOC: M LDI 05:21 → M OBS 11:00
PROVIDERS: ADMIT Specialist; ATTEND Specialist
PROC: 0UB70ZZ Excision of Bilateral Fallopian Tubes, Open Approach (ICD-10-PCS; 2021-05-04)
PROC: 10D00Z1 Extraction of Products of Conception, Low, Open Approach (ICD-10-PCS; principal; 2021-05-04 07:30)
DX: O34.211 Maternal care for low transverse scar from previous cesarean delivery (principal); O10.92 Unspecified pre-existing hypertension complicating childbirth; Z37.0 Single live birth; Z3A.38 38 weeks gestation of pregnancy; Z20.2 Contact with and (suspected) exposure to infections with a predominantly sexual mode of transmission; O09.523 Supervision of elderly multigravida, third trimester; Z87.442 Personal history of urinary calculi; Z79.899 Other long term (current) drug therapy

== ENCOUNTER 2021-09-14 02:30 | Emergency (ER) | payer OTHER ==
[~2021-09-14] VITALS: Ht 162.6 cm; Wt 102.1 kg
[2021-09-14] MEDS ORDERED: NS 1,000 ML IV ONE ×2 (03:25→07:20)
[2021-09-14 03:33] LABS: BASO # 0.1 10^3/uL (0.0-0.2); BASO % 0.6 % (0.0-1.0); EOS # 0.3 10^3/uL (0.0-0.5); EOS % 2.3 % (0.0-3.0); HEMATOCRIT 41.6 % (36.0-47.0); HEMOGLOBIN 13.2 g/dl (12.0-15.5); LYMPH % 17.2 % (24.0-44.0); MEAN CORPUSCULAR HEMOGLOBIN 27.7 pg (27.0-33.0); MEAN CORPUSCULAR HGB CONC 31.7 g/dl (32.0-36.5); MEAN CORPUSCULAR VOLUME 87.2 fl (80.0-96.0); MONO # 0.6 10^3/uL (0.0-0.8); MONO % 4.9 % (2.0-8.0); NEUTROPHILS # 8.6 10^3/uL (1.5-8.5); NEUTROPHILS % 74.8 % (36.0-66.0); PLATELET COUNT, AUTOMATED 348 10^3/uL (150-450); RED BLOOD COUNT 4.77 10^6/uL (4.00-5.40); WHITE BLOOD COUNT 11.5 10^3/uL (4.0-10.0)
[2021-09-14 03:50] LABS: ALBUMIN 3.7 GM/DL (3.2-5.2); ALT/SGPT 26 U/L (12-78); BILIRUBIN,TOTAL 0.2 MG/DL (0.2-1.0); BLOOD UREA NITROGEN 16 MG/DL (7-18); CALCIUM LEVEL 8.7 MG/DL (8.5-10.1); CARBON DIOXIDE LEVEL 23 MEQ/L (21-32); CHLORIDE LEVEL 110 MEQ/L (98-107); CREATININE FOR GFR 0.81 MG/DL (0.55-1.30); GLOMERULAR FILTRATION RATE > 60.0 (>60); GLUCOSE, FASTING 111 MG/DL (70-100); POTASSIUM SERUM 4.2 MEQ/L (3.5-5.1); SODIUM LEVEL 141 MEQ/L (136-145); TOTAL PROTEIN 7.6 GM/DL (6.4-8.2)
[2021-09-14] MEDS ORDERED: ONDANSETRON 4MG/2ML VIAL IV ONE (07:20)
[2021-09-14] MEDS ORDERED: KETOROLAC 30 MG/ML 1ML VIAL IV ONE (07:20)
[2021-09-14] MEDS ORDERED: ISOVUE-370 76% 100ML VIAL As Ordered ONE (07:32)
[2021-09-14] MEDS ORDERED: FLOM0.4C39 PO (08:47)
[2021-09-14] MEDS ORDERED: CIPR-249 PO (08:47)
[2021-09-14] MEDS ORDERED: HYDR-3713 PO (08:47)
[2021-09-14] MEDS ORDERED: cefTRIAXone SOD 1 GM in D5W MINI-BAG PLUS 50 ML IV ONE (08:50)
[2021-09-14 09:34] VITALS: BP 162/93
== END 2021-09-14 09:37 | disposition home or self-care (01) ==
LOC: M ED 02:30
DX: N13.2 Hydronephrosis with renal and ureteral calculous obstruction (principal); N30.90 Cystitis, unspecified without hematuria; I10 Essential (primary) hypertension; Z87.442 Personal history of urinary calculi
CPT/HCPCS: 74177; 80053; 81001; 84702; 85025; 87088; 87186; 96361; 96365; 96375; 99284; J0696; J1885; J2405; Q9967

== ENCOUNTER → 2021-09-25 | Outpatient (CLI) | payer OTHER ==
[~2021-09-25] MED LIST changes: +HYDR-3713 PO
[2021-09-25 18:24] LABS: APPEARANCE, URINE CLEAR (CLEAR); BACTERIA, URINE AUTO NEGATIVE (NEGATIVE); BILIRUBIN, URINE AUTO NEGATIVE (NEGATIVE); BLOOD, URINE BLOOD NEGATIVE (NEGATIVE); COLOR, URINE STRAW (YELLOW); GLUCOSE, URINE (UA) AUTO NEGATIVE (NEGATIVE); KETONE, URINE AUTO NEGATIVE (NEGATIVE); LEUKOCYTE ESTERASE, URINE AUTO 1+ (NEGATIVE); NITRITE, URINE AUTO NEGATIVE (NEGATIVE); PROTEIN, URINE AUTO NEGATIVE (NEGATIVE); RBC, URINE AUTO 0 /HPF (0-3); SPECIFIC GRAVITY URINE AUTO 1.005 (1.002-1.035); SQUAMOUS EPITHELIAL CELL UR AU 1 /HPF (0-6); UROBILINOGEN, URINE AUTO 0.2 mg/dL (0.0-2.0); WBC, URINE AUTO 0 /HPF (0-3)
== END ==
LOC: M PLALAB 15:12
PROVIDERS: ATTEND Physician Assistant
DX: N20.1 Calculus of ureter (principal)

== ENCOUNTER → 2021-10-08 | Outpatient (CLI) | payer OTHER ==
[~2021-10-08] MED LIST changes: +TAMS1CAP17
[2021-10-08 16:05] LABS: AMORPHOUS SEDIMENT SMALL (NEGATIVE); APPEARANCE, URINE HAZY (CLEAR); BACTERIA, URINE AUTO NEGATIVE (NEGATIVE); BILIRUBIN, URINE AUTO NEGATIVE (NEGATIVE); BLOOD, URINE BLOOD NEGATIVE (NEGATIVE); COLOR, URINE YELLOW (YELLOW); GLUCOSE, URINE (UA) AUTO NEGATIVE (NEGATIVE); KETONE, URINE AUTO NEGATIVE (NEGATIVE); LEUKOCYTE ESTERASE, URINE AUTO NEGATIVE (NEGATIVE); NITRITE, URINE AUTO NEGATIVE (NEGATIVE); PROTEIN, URINE AUTO NEGATIVE (NEGATIVE); RBC, URINE AUTO 0 /HPF (0-3); SPECIFIC GRAVITY URINE AUTO 1.013 (1.002-1.035); SQUAMOUS EPITHELIAL CELL UR AU 3 /HPF (0-6); UROBILINOGEN, URINE AUTO 0.2 mg/dL (0.0-2.0); WBC, URINE AUTO 1 /HPF (0-3)
[2021-10-08 16:16] LABS: BASO # 0.1 10^3/uL (0.0-0.2); EOS # 0.3 10^3/uL (0.0-0.5); EOS % 4.4 % (0.0-3.0); HEMATOCRIT 42.5 % (36.0-47.0); HEMOGLOBIN 13.6 g/dl (12.0-15.5); LYMPH # 2.1 10^3/uL (1.5-5.0); LYMPH % 33.3 % (24.0-44.0); MEAN CORPUSCULAR HEMOGLOBIN 27.6 pg (27.0-33.0); MEAN CORPUSCULAR VOLUME 86.2 fl (80.0-96.0); MONO # 0.4 10^3/uL (0.0-0.8); MONO % 6.2 % (2.0-8.0); NEUTROPHILS # 3.4 10^3/uL (1.5-8.5); NEUTROPHILS % 54.8 % (36.0-66.0); PLATELET COUNT, AUTOMATED 356 10^3/uL (150-450); RED BLOOD COUNT 4.93 10^6/uL (4.00-5.40); WHITE BLOOD COUNT 6.2 10^3/uL (4.0-10.0)
[2021-10-08 16:20] LABS: INR 0.92; PROTHROMBIN TIME 12.8 SECONDS (12.7-14.5)
[2021-10-08 16:21] LABS: ALBUMIN 3.8 GM/DL (3.2-5.2); ALT/SGPT 34 U/L (12-78); BILIRUBIN,TOTAL 0.3 MG/DL (0.2-1.0); BLOOD UREA NITROGEN 11 MG/DL (7-18); CALCIUM LEVEL 9.4 MG/DL (8.5-10.1); CARBON DIOXIDE LEVEL 27 MEQ/L (21-32); CHLORIDE LEVEL 109 MEQ/L (98-107); CREATININE FOR GFR 0.66 MG/DL (0.55-1.30); FREE T4 0.97 NG/DL (0.76-1.46); GLOMERULAR FILTRATION RATE > 60.0 (>60); GLUCOSE, FASTING 98 MG/DL (70-100); NT-PRO BNP 25 PG/ML (<125); PARTIAL THROMBOPLASTIN TIME 33.8 SECONDS (25.9-37.0); POTASSIUM SERUM 4.3 MEQ/L (3.5-5.1); SODIUM LEVEL 140 MEQ/L (136-145); TOTAL PROTEIN 7.8 GM/DL (6.4-8.2)
[2021-10-08 16:41] LABS: HEMOGLOBIN A1c 5.8 %
== END ==
LOC: M PLALAB 11:39
PROVIDERS: ATTEND Family Medicine
DX: I10 Essential (primary) hypertension (principal)

== ENCOUNTER 2021-10-10 08:06 | Day surgery (SDC) | payer OTHER ==
[~2021-10-10] VITALS: Ht 162.6 cm; Wt 104.2 kg
[~2021-10-10 08:06] MED LIST changes: +LIDOCAINE 2% 100MG/5ML SDV (FOR ANES.) As Ordered ONE; +LR 1,000 ML IV ONE; +MIDAZOLAM INJ 2MG/2ML VIAL (J2250 PER 1MG) As Ordered ONE; +ONDANSETRON 4MG/2ML VIAL As Ordered ONE; +ROCURONIUM BROMIDE 50 MG/5 ML VIAL As Ordered ONE; +ceFAZolin SOD 2 GM in IV 1 EA IV ONE; +dexameTHASONE 4 MG/ML 1ML VIAL (J1100 PER 1MG) As Ordered ONE; +fentaNYL 250 MCG/5 ML INJECTION As Ordered ONE; +propofoL 200 MG/20 ML VIAL As Ordered ONE
[2021-10-10] MEDS ORDERED: ACETAMINOPHEN 1000MG 100ML IV BTL (OFIRMEV) (J0131 PER 10MG) As Ordered ONE (09:29)
[2021-10-10] MEDS ORDERED: METOCLOPRAMIDE INJ 10MG/2ML VIAL (J2765 PER 1) As Ordered ONE (09:34)
[2021-10-10] MEDS ORDERED: CONRAY-60 60% 50ML VIAL (Q9961) As Ordered ONE (09:41)
[2021-10-10] MEDS ORDERED: LR 1,000 ML IV SCH (10:30)
[2021-10-10] MEDS ORDERED: HYDROMORPHONE HCL 0.5 MG/ 0.5 ML SYRINGE (J1170 PER 1) IV PRN (10:30)
[2021-10-10] MEDS ORDERED: PERCOCET 5MG/325MG TAB PO PRN (10:30)
[2021-10-10] MEDS ORDERED: ONDANSETRON 4MG/2ML VIAL IV PRN (10:30)
[2021-10-10] MEDS ORDERED: fentaNYL 100 MCG/2 ML INJECTION IV PRN (10:30)
[2021-10-10] MEDS ORDERED: oxyCODONE 5MG TAB PO PRN (10:30)
[2021-10-10 11:14] VITALS: BP 142/85
== END 2021-10-10 11:50 | disposition home or self-care (01) ==
LOC: M SDC 08:06
PROVIDERS: ATTEND Urology
DX: N20.0 Calculus of kidney (principal); E03.9 Hypothyroidism, unspecified; I10 Essential (primary) hypertension; G47.33 Obstructive sleep apnea (adult) (pediatric); Z79.899 Other long term (current) drug therapy
CPT/HCPCS: 52005; 74420; C1769; J0131; J0690; J1100; J2250; J2405; J2765; J3010; Q9961

== ENCOUNTER → 2022-01-23 | Outpatient (REF) | payer OTHER ==
[~2022-01-23] MED LIST changes: -LIDOCAINE 2% 100MG/5ML SDV (FOR ANES.) As Ordered ONE; -LR 1,000 ML IV ONE; -MIDAZOLAM INJ 2MG/2ML VIAL (J2250 PER 1MG) As Ordered ONE; -ONDANSETRON 4MG/2ML VIAL As Ordered ONE; -ROCURONIUM BROMIDE 50 MG/5 ML VIAL As Ordered ONE; -ceFAZolin SOD 2 GM in IV 1 EA IV ONE; -dexameTHASONE 4 MG/ML 1ML VIAL (J1100 PER 1MG) As Ordered ONE; -fentaNYL 250 MCG/5 ML INJECTION As Ordered ONE; -propofoL 200 MG/20 ML VIAL As Ordered ONE
== END ==
LOC: M SFHCWAGY 13:15
PROVIDERS: ATTEND Specialist
DX: Z12.4 Encounter for screening for malignant neoplasm of cervix (principal); B37.9 Candidiasis, unspecified

== ENCOUNTER → 2022-02-13 | Outpatient (CLI) | payer OTHER ==
[2022-02-13 13:55] LABS: BASO # 0.1 10^3/uL (0.0-0.2); BASO % 0.8 % (0.0-1.0); EOS # 0.3 10^3/uL (0.0-0.5); EOS % 3.6 % (0.0-3.0); HEMATOCRIT 43.5 % (36.0-47.0); HEMOGLOBIN 13.8 g/dl (12.0-15.5); LYMPH # 2.9 10^3/uL (1.5-5.0); LYMPH % 34.5 % (24.0-44.0); MEAN CORPUSCULAR HEMOGLOBIN 27.5 pg (27.0-33.0); MEAN CORPUSCULAR HGB CONC 31.7 g/dl (32.0-36.5); MEAN CORPUSCULAR VOLUME 86.8 fl (80.0-96.0); MONO # 0.5 10^3/uL (0.0-0.8); MONO % 6.3 % (2.0-8.0); NEUTROPHILS # 4.5 10^3/uL (1.5-8.5); NEUTROPHILS % 54.4 % (36.0-66.0); PLATELET COUNT, AUTOMATED 369 10^3/uL (150-450); RED BLOOD COUNT 5.01 10^6/uL (4.00-5.40); WHITE BLOOD COUNT 8.3 10^3/uL (4.0-10.0)
[2022-02-13 15:09] LABS: ALBUMIN 3.8 GM/DL (3.2-5.2); ALT/SGPT 27 U/L (12-78); BILIRUBIN,TOTAL 0.5 MG/DL (0.2-1.0); BLOOD UREA NITROGEN 12 MG/DL (7-18); CALCIUM LEVEL 9.3 MG/DL (8.5-10.1); CARBON DIOXIDE LEVEL 27 MEQ/L (21-32); CHLORIDE LEVEL 107 MEQ/L (98-107); CHOLESTEROL LEVEL 194 MG/DL (<200); CHOLESTEROL RISK RATIO 4.619 (<5); CREATININE FOR GFR 0.75 MG/DL (0.55-1.30); FREE T4 1.09 NG/DL (0.76-1.46); GLOMERULAR FILTRATION RATE > 60.0 (>60); GLUCOSE, FASTING 103 MG/DL (70-100); HDL CHOLESTEROL 42 MG/DL (>40); LDL CHOLESTEROL 116 MG/DL (<100); NON-HDL-C 152 MG/DL; POTASSIUM SERUM 4.2 MEQ/L (3.5-5.1); SODIUM LEVEL 139 MEQ/L (136-145); TOTAL PROTEIN 7.5 GM/DL (6.4-8.2); TRIGLYCERIDES LEVEL 181 MG/DL (<150)
[2022-02-13 16:08] LABS: PTH INTACT 85.5 PG/ML (18.5-88.0); TOTAL 25(OH) VITAMIN D 12.1 NG/ML (30.0-100.0)
[2022-02-13 21:44] LABS: HEMOGLOBIN A1c 5.7 %
== END ==
LOC: M PLALAB 09:12
PROVIDERS: ATTEND Physician Assistant Medical
DX: N20.0 Calculus of kidney (principal); E66.9 Obesity, unspecified; E55.9 Vitamin D deficiency, unspecified; R53.82 Chronic fatigue, unspecified; I10 Essential (primary) hypertension; Z13.220 Encounter for screening for lipoid disorders

== ENCOUNTER → 2022-04-26 | Outpatient (CLI) | payer OTHER ==
[~2022-04-26] MED LIST changes: -LABE100T4 PO; +LABE100T6 PO
== END ==
LOC: M SOG 13:26
PROVIDERS: ATTEND Physician Assistant
DX: M25.542 Pain in joints of left hand (principal); M25.541 Pain in joints of right hand; Z53.9 Procedure and treatment not carried out, unspecified reason

== ENCOUNTER → 2022-05-01 | Outpatient (CLI) | payer OTHER | LOC: M PLAIMG 11:25 | PROVIDERS: ATTEND Physician Assistant | DX: Z87.442 Personal history of urinary calculi (principal) ==

== ENCOUNTER → 2022-09-18 | Outpatient (CLI) | payer OTHER ==
[2022-09-18 12:20] LABS: HEMOGLOBIN A1c 5.9 % (4.0-6.0)
[2022-09-18 14:41] LABS: CALCIUM LEVEL 9.5 MG/DL (8.5-10.1); PTH INTACT 84.6 PG/ML (18.5-88.0); TOTAL 25(OH) VITAMIN D 52.4 NG/ML (20.0-100.0)
== END ==
LOC: M PLALAB 08:56
PROVIDERS: ATTEND Physician Assistant Medical
DX: E55.9 Vitamin D deficiency, unspecified (principal)

== ENCOUNTER → 2023-09-04 | Outpatient (CLI) | payer OTHER ==
[~2023-09-04] MED LIST changes: -AK-T0.3S OS; +TOBR0.3S30 OS
[2023-09-04 16:27] LABS: BASO # 0.1 10^3/uL (0.0-0.2); BASO % 0.8 % (0.0-1.0); EOS # 0.3 10^3/uL (0.0-0.5); EOS % 4.9 % (0.0-3.0); HEMATOCRIT 43.6 % (36.0-47.0); HEMOGLOBIN 14.8 g/dl (12.0-15.5); LYMPH # 2.3 10^3/uL (1.5-5.0); LYMPH % 37.5 % (24.0-44.0); MEAN CORPUSCULAR HEMOGLOBIN 29.1 pg (27.0-33.0); MEAN CORPUSCULAR HGB CONC 33.9 g/dl (32.0-36.5); MEAN CORPUSCULAR VOLUME 85.8 fl (80.0-96.0); MONO # 0.4 10^3/uL (0.0-0.8); MONO % 6.3 % (2.0-8.0); NEUTROPHILS # 3.1 10^3/uL (1.5-8.5); NEUTROPHILS % 50.3 % (36.0-66.0); PLATELET COUNT, AUTOMATED 280 10^3/uL (150-450); RED BLOOD COUNT 5.08 10^6/uL (4.00-5.40); WHITE BLOOD COUNT 6.2 10^3/uL (4.0-10.0)
[2023-09-04 16:51] LABS: HEMOGLOBIN A1c 5.8 % (4.0-6.0)
[2023-09-04 16:57] LABS: ALBUMIN 3.8 G/DL (3.2-5.2); ALKALINE PHOSPHATASE 91 U/L (46-116); ALT/SGPT 24 U/L (7.0-40); AST/SGOT 16 U/L (<34); BILIRUBIN,TOTAL 0.4 MG/DL (0.3-1.2); BLOOD UREA NITROGEN 7 MG/DL (9-23); CALCIUM LEVEL 9.7 MG/DL (8.5-10.1); CARBON DIOXIDE LEVEL 26 MMOL/L (20-31); CHLORIDE LEVEL 105 MMOL/L (98-107); CHOLESTEROL LEVEL 202 MG/DL (<200); CHOLESTEROL RISK RATIO 6.21 (<5); CREATININE FOR GFR 0.65 MG/DL (0.55-1.30); FREE T4 1.23 NG/DL (0.89-1.76); GLOMERULAR FILTRATION RATE > 60.0 (>60); GLUCOSE, FASTING 99 MG/DL (60-100); HDL CHOLESTEROL 32.5 MG/DL (>40); LDL CHOLESTEROL 133.7 MG/DL (<100); NON-HDL-C 169.5 MG/DL; POTASSIUM SERUM 4.2 MMOL/L (3.5-5.1); PTH INTACT 40.7 PG/ML (18.5-88.0); SODIUM LEVEL 137 MMOL/L (136-145); TOTAL PROTEIN 7.6 G/DL (5.7-8.2); TRIGLYCERIDES LEVEL 179 MG/DL (<150)
[2023-09-04 16:58] LABS: THYROID STIMULATING HORMONE 2.989 uIU/ML (0.55-4.78)
[2023-09-04 16:59] LABS: TOTAL 25(OH) VITAMIN D 50.5 NG/ML (20.0-100.0)
== END ==
LOC: M PLAIMG 11:57
PROVIDERS: ATTEND Physician Assistant Medical
DX: R07.9 Chest pain, unspecified (principal); R53.82 Chronic fatigue, unspecified; E55.9 Vitamin D deficiency, unspecified; E66.9 Obesity, unspecified; E28.2 Polycystic ovarian syndrome; I10 Essential (primary) hypertension; Z13.220 Encounter for screening for lipoid disorders

== ENCOUNTER → 2023-09-07 | Outpatient (CLI) | payer OTHER | LOC: M EKG 11:30 | PROVIDERS: ATTEND Physician Assistant Medical | DX: R07.9 Chest pain, unspecified (principal) ==

== ENCOUNTER → 2024-05-12 | Outpatient (CLI) | payer OTHER ==
[2024-05-12 12:15] LABS: BASO # 0.1 10^3/uL (0.0-0.2); BASO % 0.7 % (0.0-1.0); EOS # 0.2 10^3/uL (0.0-0.5); EOS % 3.3 % (0.0-3.0); HEMOGLOBIN 13.4 g/dl (12.0-15.5); LYMPH # 2.4 10^3/uL (1.5-5.0); LYMPH % 32.8 % (24.0-44.0); MEAN CORPUSCULAR HEMOGLOBIN 28.4 pg (27.0-33.0); MEAN CORPUSCULAR HGB CONC 32.7 g/dl (32.0-36.5); MEAN CORPUSCULAR VOLUME 86.9 fl (80.0-96.0); MONO # 0.4 10^3/uL (0.0-0.8); MONO % 5.7 % (2.0-8.0); NEUTROPHILS # 4.1 10^3/uL (1.5-8.5); NEUTROPHILS % 57.2 % (36.0-66.0); PLATELET COUNT, AUTOMATED 320 10^3/uL (150-450); RED BLOOD COUNT 4.72 10^6/uL (4.00-5.40); WHITE BLOOD COUNT 7.2 10^3/uL (4.0-10.0)
[2024-05-12 12:39] LABS: PTH INTACT 85.2 PG/ML (18.5-88.0)
[2024-05-12 12:40] LABS: ALBUMIN 3.7 G/DL (3.2-5.2); ALKALINE PHOSPHATASE 83 U/L (46-116); ALT/SGPT 21 U/L (7.0-40); AST/SGOT < 8 U/L (<34); BILIRUBIN,TOTAL 0.4 MG/DL (0.3-1.2); BLOOD UREA NITROGEN 10 MG/DL (9-23); CALCIUM LEVEL 9.7 MG/DL (8.5-10.1); CARBON DIOXIDE LEVEL 26 MMOL/L (20-31); CHLORIDE LEVEL 106 MMOL/L (98-107); CHOLESTEROL LEVEL 204 MG/DL (<200); CREATININE FOR GFR 0.72 MG/DL (0.55-1.30); FREE T4 1.21 NG/DL (0.89-1.76); GLOMERULAR FILTRATION RATE > 60.0 (>60); GLUCOSE, FASTING 88 MG/DL (60-100); HDL CHOLESTEROL 33.4 MG/DL (>40); LDL CHOLESTEROL 142.8 MG/DL (<100); NON-HDL-C 170.6 MG/DL; SODIUM LEVEL 138 MMOL/L (136-145); THYROID STIMULATING HORMONE 5.226 uIU/ML (0.55-4.78); TOTAL 25(OH) VITAMIN D 56.6 NG/ML (20.0-100.0); TOTAL PROTEIN 7.3 G/DL (5.7-8.2); TRIGLYCERIDES LEVEL 139 MG/DL (<150)
== END ==
LOC: M LAB 11:16
PROVIDERS: ATTEND Physician Assistant Medical
DX: I10 Essential (primary) hypertension (principal)